=== PATIENT | female | born 1950 | race Caucasian/White ===

== ENCOUNTER 2017-07-19 07:30 | Inpatient (IN) ==
[2017-08-02 05:45] VITALS: BMI 37.3
[2017-08-02] MEDS ORDERED: LIDOCAINE 1% (10mg/ml) 2mL INJ PF SDV ID ONE (06:00)
[2017-08-02] MEDS ORDERED: ACETAMINOPHEN 500 MG TABLET PO ONE (06:00)
[2017-08-02] MEDS: LR 1,000 ML IV SCH ×2 (06:00→08:10)
[2017-08-02] MEDS ORDERED: METOCLOPRAMIDE 10mg/2ml INJECTION IVP ONE (06:00)
[2017-08-02] MEDS ORDERED: FAMOTIDINE PB 20 MG/50 ML BAG IV ONE (06:00)
[2017-08-02] MEDS ORDERED: NOZIN NASAL SWAB NAS ONE ×2 (06:00→10:09)
[2017-08-02] MEDS ORDERED: ONDANSETRON 4 MG/2 ML INJECTION IVP ONE (06:00)
[2017-08-02] MEDS ORDERED: TRANEXAMIC ACID 1,000 MG in NS 100 ML IV ONE (06:00)
[2017-08-02] MEDS ORDERED: VANCOMYCIN 1,000 MG INJECTION ONE (06:12)
[2017-08-02] MEDS ORDERED: FentaNYL 100 MCG/2 ML INJECTION ONE ×2 (06:58→08:37)
[2017-08-02] MEDS ORDERED: MIDAZOLAM 2mg/2ml INJECTION ONE ×3 (06:58→08:37)
[2017-08-02] MEDS ORDERED: PROPOFOL 0 MG/0 ML VIAL IV ONE (07:07)
--- NOTE | 2017-08-02 07:39 | Anesthesia Preoperative Report ---
Anesthesia Preoperative Record - Date and Time Date: 08/02/17 Preoperative Diagnosis: L hip NPO Since Date: 08/01/17 NPO Since Time: 00:00 Allergies/Adverse Reactions: Allergies Allergy/AdvReac Type Severity Reaction Status Date / Time Sulfa (Sulfonamide Allergy Mild RASH Verified 07/20/17 11:05 Antibiotics) anastrozole [From Arimidex] Allergy Unknown severe Verified 08/02/17 05:49 muscle and joint aches letrozole [From Femara] Allergy Unknown Joint Pain Verified 08/02/17 05:49 lansoprazole AdvReac Intermediate ANXIETY,PANIC Verified 08/02/17 05:49 ATTACK simvastatin [From Zocor] AdvReac Unknown elevated Verified 08/02/17 05:49 blood sugar - Vital Signs Vital Signs: Temperature 98.3 F 08/02/17 06:43 Pulse Rate 62 08/02/17 06:11 Respiratory Rate 18 08/02/17 05:44 Blood Pressure 166/82 H 08/02/17 06:46 Pulse Oximetry 96 08/02/17 05:44 Height and Weight: Height 1.7 m Weight 108 kg Body Mass Index 37.3 - Medications Inpatient Medications: Current Medications Lactated Ringer's (Lactated Ringers) 1,000 mls @ 50 mls/hr IV .Q20H CYNTHIA Last Admin: 08/02/17 06:00 Dose: 50 mls/hr Epinephrine HCl 0.25 mg/Bupivacaine HCl 30 ml/Morphine Sulfate 15 mg/Ketorolac Tromethamine 60 mg/Sodium Chloride 65.25 mls @ 1 mls/hr OPSITE INTRAOP ONE PRN Reason: Protocol Stop: 08/05/17 01:14 Sodium Chloride (Iv Flush) 10 - 80 ml IV PRN PRN PRN Reason: Flushing Home Medications: Home Medications Medication Instructions Recorded Confirmed Type Levothyroxine Tab [Synthroid] 50 mcg PO DAILY #0 08/01/09 08/02/17 History cephALEXin [Keflex] 500 mg PO DAILY #0 08/01/09 08/02/17 History Cholecalciferol (Vitamin D3) 1 cap PO 1 WEEK 06/01/17 08/02/17 History [Vitamin D3] Glucosa Morrissey 2Kcl/Chondroitin Morrissey 1 each PO BID 06/01/17 08/02/17 History [Glucosamine Chondroitin Caplet] Naproxen [Aleve] 220 - 440 mg PO BID PRN 06/01/17 08/02/17 History Venlafaxine [Effexor] 75 mg PO DAILY 06/01/17 08/02/17 History Vitamin B Complex [Super B-50 1 each PO DAILY 06/01/17 08/02/17 History Complex] krill 1,000 mg-omega-3 170 mg-dha 2 cap PO BID 06/01/17 08/02/17 History 50 mg-epa 80 [id number]-rbpto capsule magnesium 250 mg tablet 250 mg PO HS 06/01/17 08/02/17 History - Medical History Cardiovascular: Reports: Heart Murmur (asymptomatic), Hypertension Gastrointestional: Reports: Morbid Obesity (BMI 37) Neuro/Musculoskeletal: Reports: Other ("left jaw abnormal" Pops and locks up.) - Surgical History HEENT Surgeries: Reports: Tonsillectomy (age 2) Cardiac Surgeries/Treatments: Reports: Cardiac Catheterization (2008) GI Surgery/Treatments: Reports: Colonoscopy (2009) Reproductive Surgery/Treatment: Reports: Dilation and Curettage, Mastectomy ( bilateral with implants 2007) Anesthesia Reactions: None Hx Family Anesthesia Reaction: No History of Motion Sickness: No - Social History Smoking Status: Never smoker Hx Chewing Tobacco Use: No Second Hand Exposure: No Substance Use Type: does not use Alcohol Intake Frequency: does not drink - Pertinent Findings EKG: Sinus Rhythm - Physical Exam Respiratory Exam: Present: lungs clear, bilateral breath sounds equal Cardiovascular Exam: Present: regular rate and rhythm - Airway Assessment Mallampati Score: II TMD: 3 Fingerbreadths Neck Extension: fair Overall Assessment: may be difficult intubation (small mouth opening and abnormal jaw) - ASA ASA Score: 2 - Plan Plan: SAB vs GA Anesthesia: General TIVA, General Inhalation Gases, Neuroaxial - Discussion Discussion: Discussed risks/options/alternatives of anesthesia and questions answered. Patient consents. Nursing pain assessment noted. Present for Discussion: family member Attestation Statement: Prior to the delivery of any anesthetic medication, I examined the patient, developed the plan, obtained the patient's consent and discussed the risk and benefits of the procedure with the patient/guardian. - Additional Information Seen by Anesthesia: Yes
[2017-08-02] MEDS ORDERED: HYDROMORPHONE 2 MG/ML INJECTION IVP PRN (07:40)
[2017-08-02] MEDS ORDERED: ONDANSETRON 4 MG/2 ML INJECTION IVP PRN ×2 (07:40→10:09)
[2017-08-02] MEDS ORDERED: EPINEPHrine 0.25 MG, BUPIVACAINE 0.25% PF 30 ML, MORPHINE SULFATE 15 MG, KETOROLAC INJ ... OPSITE ONE (08:00)
[2017-08-02] MEDS ORDERED: CEFAZOLIN 1 G INJECTION IVP ONE (08:06)
[2017-08-02] MEDS ORDERED: ONDANSETRON 4 MG/2 ML INJECTION ONE (08:16)
[2017-08-02] MEDS ORDERED: DEXAMETHASONE 4 MG/ML INJECTION ONE (08:16)
[2017-08-02] MEDS: TRANEXAMIC ACID 1,000 MG in NS 100 ML IV ONE ×2 (08:35→10:30)
[2017-08-02] MEDS ORDERED: VANCOMYCIN 1,000 MG INJECTION IAR ONE (08:38)
--- NOTE | 2017-08-02 08:50 | Operative Note ---
- Procedure Preoperative Diagnosis: Left hip primary degenerative joint disease Postoperative Diagnosis: Same as preoperative diagnosis. Surgeon: Sinai Best MD Tow Car Driver: Osmani Romero Complications: None. Anesthesia: Spinal. Estimated Blood Loss: See Anesthesia Record. Fluids: Please see Anesthesia Record. Description of Procedure: Mrs. Dial and her left hip were identified and marked in the preoperative holding area. She was brought back to the operating suite and spinal anesthetic was administered. She was then placed in a lateral decubitus position with her left hip up. The left lower extremity was prepped and draped in my normal sterile fashion. Timeout was performed. The [employer] robotic arm was used to assist with the surgery. A pelvic array was placed into the iliac crest through three 1 cm incisions. A direct superior approach was utilized. An approximately 15 cm incision was made in the skin and dissection carried down to the muscle fascia which was then split in line with skin incision. A checkpoint was placed in the greater trochanter. The short external rotators were identified and tagged and detached. A capsulotomy was performed and the hip dislocated. A femoral neck osteotomy was performed at the pre-templated level measuring down from the femoral head. The head was removed and acetabulum exposed. Labrum was removed. The acetabulum was then registered with the robot. The robotic arm was then used to ream with a 51 reamer. The robot then was again used to place a 52 Trident cup in 40 of tilt and 25 of anteversion. A liner was then placed. The proximal femur was exposed and prepared with a cookie cutter followed by reaming and broaching to a size 3. We trialed with a standard head. After thorough irrigation a final Accolade 2 size 3 stem with 132 neck was placed. Leg length and offset were checked with the robot and were good. A final standard ceramic head was placed and the hip reduced. Betadine solution was used to irrigate throughout the case. It was followed by normal saline irrigation. Joint cocktail was injected throughout soft tissue. The capsulotomy was repaired with Ethibond. Short external rotators were also repaired with Ethibond. 1 g of vancomycin powder was placed into the wound. The muscle fascia was then repaired with #1 Vicryl. I then left my title i instructional assistant to close the subcutaneous tissue with 2-0 Vicryl followed by running 4-0 Monocryl skin followed by Dermabond and a sterile dressing. The patient with any placed back into supine position and taken to recovery room in the care of anesthesia.
[2017-08-02] MEDS ORDERED: LIDOCAINE 1% (10mg/ml) 30ml SDV INJ ONE (09:02)
--- NOTE | 2017-08-02 09:42 | Anesthesia Postoperative Note ---
- Date and Time Date: 08/02/17 Time: 09:41 - Status Patient Participated in Evaluation: Patient Participated in Person Vital Signs: Temperature 98.3 F 08/02/17 06:43 Pulse Rate 62 08/02/17 06:11 Respiratory Rate 18 08/02/17 05:44 Blood Pressure 166/82 H 08/02/17 06:46 Pulse Oximetry 96 08/02/17 05:44 Respiratory Function: Airway Patent, Regular Respirations Cardiovascular Function: Regular Pulse Mental Status: Alert and Oriented Pain Intensity: 0 Hydration: IV Infusing Complications During Recover: None Apparent Post Anesthesia Care Notes: moves lower extremeties - Follow-Up Instructions Instructions: Per Surgeon
--- NOTE | 2017-08-02 10:02 | XRay Report ---
Indication: postoperative image PROCEDURE: XR pelvis w/ 1 view LT hip: Encounter: Initial Comparison: July 05, 2017 Findings: Postoperative changes of left total hip replacement are seen. There is expected postoperative subcutaneous gas. No evidence of hardware failure or acute fracture. No retained radiopaque surgical instruments or sponges seen. Impression: New left total hip prosthesis without evidence of immediate complication. .
[2017-08-02] MEDS ORDERED: DiphenhydrAMINE 50 MG/ML INJECTION IVP PRN (10:09)
[2017-08-02] MEDS ORDERED: Oxycodone *IR* 5 MG TABLET PO PRN (10:09)
[2017-08-02] MEDS ORDERED: DiphenhydrAMINE 25 MG CAPSULE PO PRN (10:09)
[2017-08-02] MEDS ORDERED: LORazepam 1 MG TABLET PO PRN (10:09)
[2017-08-02] MEDS: NS 1,000 ML IV SCH (10:34)
[2017-08-02] MEDS ORDERED: EPHEDRINE 50mg/ml INJECTION ONE (10:47)
[2017-08-02] MEDS: ACETAMINOPHEN 325 MG TABLET PO SCH ×3 (13:01→21:18)
[2017-08-02] MEDS: NOZIN NASAL SWAB NAS SCH ×2 (13:02→21:26)
[2017-08-02] MEDS ORDERED: SALINE FLUSH 10ml SYRINGE IV PRN (13:59)
[2017-08-02] MEDS ORDERED: VENLAFAXINE 75 MG TABLET PO ONE (14:15)
[2017-08-02] MEDS: CEFAZOLIN 2 G in NS 100 ML IV SCH ×2 (15:41→23:02)
[2017-08-02] MEDS: NAPROXEN 220 MG TABLET PO PRN (15:50)
[2017-08-02] MEDS ORDERED: SENNOSIDES 8.6 MG TABLET PO SCH (21:00)
[2017-08-02] MEDS ORDERED: MAGNESIUM OXIDE 400 MG TABLET PO SCH (21:00)
[2017-08-02] MEDS: DOCUSATE SODIUM 100 MG CAPSULE PO SCH (21:19)
[2017-08-02] MEDS: ASPIRIN *EC* 81 MG TABLET PO SCH (21:19)
[2017-08-03] MEDS: NS 1,000 ML IV SCH ×2 (00:13→12:04)
[2017-08-03] MEDS: NAPROXEN 220 MG TABLET PO PRN (03:33)
[2017-08-03] MEDS: NOZIN NASAL SWAB NAS SCH (06:48)
[2017-08-03 07:22] VITALS: RESP 16
--- NOTE | 2017-08-03 08:20 | Orthopedic Progress Note ---
Date: Subjective/Severity of Illness: Doing very well. Pain is well controlled. She has been up with good tolerance. No CV or Resp complaints this AM. Orthopedic Objective PO Vital signs: Temperature 96.6 F L 08/03/17 07:21 Pulse Rate 79 08/03/17 07:21 Respiratory Rate 16 08/03/17 07:21 Blood Pressure 129/70 08/03/17 07:21 Pulse Oximetry 97 08/03/17 07:21 Height and Weight: Height 5 ft 7 in Weight 245 lb 5.992 oz Body Mass Index 37.3 - Constitutional General Appearance: Present: alert, no acute distress - Respiratory Exam Present: non-labored - Extremities Exam Extremities: Present: pulses intact, normal capillary refill. Absent: calf tenderness - Surgical Site Incision: Mepilex dressing intact, dressing intact, no drainage - Integumentary Exam Present: pink, warm, dry - Neurological Exam Present: intact to light touch, no deficits - Psychiatric Exam Present: alert, normal affect - Labs Result Diagrams: 08/03/17 03:57 08/03/17 03:57 Abnormal lab results 08/02/17 08/03/17 Range/Units 17:52 03:57 RBC 3.49 L (4.00-5.20) M/MM3 Hgb 11.1 L 10.4 L (12-16) GM/DL Hct 33.9 L 31.9 L (36-46) % H & H 08/02/17 08/03/17 Range/Units 17:52 03:57 Hgb 11.1 L 10.4 L (12-16) GM/DL Hct 33.9 L 31.9 L (36-46) % Orthopedic Assessment and Plan (1) Primary osteoarthritis of left hip Status: Acute Assessment and Plan: Current anti-coagulation protocol for VTE prophylaxis. SCD's. PT/OT services to improve independent function. Discharge Planning per Case Management. - Anticoagulation Therapy Anticoagulation: other (ASA 81mg BID x 6 weeks.) Hospital Course Summary Disclaimer: The visit summary below is not to be considered part of the above Progress Note.
[2017-08-03 08:22] VITALS: PULSE 66
[2017-08-03] MEDS: ACETAMINOPHEN 325 MG TABLET PO SCH ×2 (08:57→12:19)
[2017-08-03] MEDS: ASPIRIN *EC* 81 MG TABLET PO SCH (08:58)
[2017-08-03] MEDS: DOCUSATE SODIUM 100 MG CAPSULE PO SCH (08:58)
[2017-08-03] MEDS ORDERED: LEVOTHYROXINE 50 MCG TABLET PO SCH (09:00)
[2017-08-03] MEDS ORDERED: POLYETHYL GLYCOL 3350 17gm PACKET PO SCH (09:00)
[2017-08-03] MEDS ORDERED: VENLAFAXINE 75 MG TABLET PO SCH (09:00)
[2017-08-03] MEDS ORDERED: SENNOSIDES 8.6 MG TABLET PO PRN (09:17)
[2017-08-03] MEDS ORDERED: PNEUMOCOCCAL 13 VACCINE 0.5ml INJECTION IM ONE (12:00)
[2017-08-03] MEDS ORDERED: INFLUENZA VAC High Dose 2017-18 (Fluzone HD*) (>=65yo) 0.5ml IM ONE (12:00)
--- NOTE | 2017-08-03 12:14 | Discharge Summary ---
Orthopedic Discharge Info Date of admission: 08/02/17 05:25 Primary care physician: ANNY WHITE Attending Physician: Fady Best MD Consults: 08/02/17 05:35 Consult to Anesthesiology [CONS] Routine Consulting Provider: DEBBIE Villegas Reason For Exam: Preoperative Assessment 08/02/17 10:09 Case Management Consult [CONS] Routine Reason For Exam: Discharge Planning DME-Walker [CONS] Routine Height: 5 ft 7 in Weight: 238 lb 1.588 oz Comment: change dressing in 2 weeks Total Joint Outpatient Therapy [CONS] Routine Comment: change dressing in 2 weeks - Discharge Diagnosis (1) Primary osteoarthritis of left hip Status: Acute - Procedures Procedures: Lt DANTE - Laboratory Result Diagrams: 08/03/17 03:57 08/03/17 03:57 Laboratory: Abnormal lab results 08/02/17 08/03/17 Range/Units 17:52 03:57 RBC 3.49 L (4.00-5.20) M/MM3 Hgb 11.1 L 10.4 L (12-16) GM/DL Hct 33.9 L 31.9 L (36-46) % H & H 08/02/17 08/03/17 Range/Units 17:52 03:57 Hgb 11.1 L 10.4 L (12-16) GM/DL Hct 33.9 L 31.9 L (36-46) % Orthopedic Discharge HPI - HPI Comments This patient was admitted for elective surgical tx of end stage degenerative joint disease that failed to respond to conservative treatment. Further details of this is found in the admission H&P. Orthopedic Hospital Course Hospital course: 08/03/17 12:13 After appropriate preoperative clearance and signing of operative consent, the patient was given IV antibiotics, according to orthopedic protocol. The patient was taken to the operating room and underwent elective joint arthroplasty. Following surgery, antibiotics were discontinued less than 24 hours according to joint protocol. Appropriate anticoagulants were initiated and SCDs added for DVT prevention. The dressing was clean, dry, and intact. Pain control was obtained via multimodal approach. Bowel motivation addressed with scheduled and PRN medications. Early mobilization was initiated through PT services. Discharge arrangements made by a collaborative effort between the patient and Case Management. Follow-up is scheduled in 2-3 weeks. Discharge instructions given by orthopedic providers and nursing staff at discharge. Discharge condition was good. Ongoing care required?: No Discharge Plan - Med Rec/Dispo Referrals/Follow Up: Fady Best MD [Physician] - 08/24/17 10:30 am [facility] Instructions: [facility] Ortho Postop Instructions Prescriptions: No Action Vitamin B Complex [Super B-50 Complex] 1 each PO DAILY Venlafaxine [Effexor] 75 mg PO DAILY Glucosa Morrissey 2Kcl/Chondroitin Morrissey [Glucosamine Chondroitin Caplet] 1 each PO BID cephALEXin [Keflex] 500 mg PO DAILY #0 Levothyroxine Tab [Synthroid] 50 mcg PO DAILY #0 Naproxen [Aleve] 220 - 440 mg PO BID PRN PRN Reason: Pain Cholecalciferol (Vitamin D3) [Vitamin D3] 1 cap PO 1 WEEK krill 1,000 mg-omega-3 170 mg-dha 50 mg-epa 80 [id number] capsule 2 cap PO BID magnesium 250 mg tablet 250 mg PO HS
--- NOTE | 2017-08-03 12:18 | Discharge Instructions ---
Discharge Plan - Med Rec/Dispo Referrals/Follow Up: Fady Best MD [Physician] - 08/24/17 10:30 am [facility] Instructions: [facility] Postop Instructions Prescriptions: Continue Vitamin B Complex [Super B-50 Complex] 1 each PO DAILY Venlafaxine [Effexor] 75 mg PO DAILY Glucosa Morrissey 2Kcl/Chondroitin Morrissey [Glucosamine Chondroitin Caplet] 1 each PO BID cephALEXin [Keflex] 500 mg PO DAILY #0 Levothyroxine Tab [Synthroid] 50 mcg PO DAILY #0 Naproxen [Aleve] 220 - 440 mg PO BID PRN PRN Reason: Pain Cholecalciferol (Vitamin D3) [Vitamin D3] 1 cap PO 1 WEEK krill 1,000 mg-omega-3 170 mg-dha 50 mg-epa 80 [id number] capsule 2 cap PO BID magnesium 250 mg tablet 250 mg PO HS - Disposition 01 Discharged Home, Self-Care
[2017-08-03 12:25] VITALS: BP 124/65; TEMP 97.1; O2SAT 96
[2017-08-03] MEDS ORDERED: PNEUMOCOCCAL VAC ADMIN CHARGE INJ ONE (13:19)
[2017-08-03] MEDS ORDERED: INFLUENZA VAC. INJ. ADMIN CHARGE INJ ONE (13:19)
[2017-08-04] MEDS ORDERED: BISACODYL 10 MG SUPPOSITORY RECTALLY SCH (20:00)
== END 2017-08-03 13:20 | disposition home or self-care (01) | DRG 470 ==
LOC: SRG 08-02 05:25
PROVIDERS: ADMIT Orthopaedic Surgery; ATTEND Orthopaedic Surgery